=== PATIENT | female | born 1965 | race Hispanic/Latino ===

== ENCOUNTER 2019-11-15 07:11 | Emergency (ER) | payer OTHER ==
[~2019-11-15 07:11] MED LIST: ASCO1CAP5 PO; BLAC40CA PO; CYAN250014 PO; GENI30TA2 PO; MULT-1250 PO
== END 2019-11-15 07:39 | disposition left against medical advice (07) ==
LOC: EDH 07:11
DX: R05 Cough (principal); Z53.21 Procedure and treatment not carried out due to patient leaving prior to being seen by health care provider